=== PATIENT | male | born 1965 | race Caucasian/White ===

== ENCOUNTER 2021-03-24 14:16 | Emergency (ER) | payer OTHER, MEDICAID ==
[~2021-03-24] VITALS: Ht 185.4 cm; Wt 147.4 kg
--- NOTE | ~2021-03-24 | EMS ---
[facility] [address] [place] [address] EMS Patient Care Report Name: WILBERT JHA Room: PRE ER M.R.#: [id number] Admission: Attend Phys: Discharge: Date of : 65 Report #: [id number] THIS REPORT FOR: //name// Report Transmitted: 03/24/2021 14:18 EMS Care Summary [facility] [place] [id number] @ 03/24/2021 13:33 Incident Location [address] [place] [address] Patient Wilbert Jha Male, 55 Years 1965 Patient Address [address] [place] [address] Patient History Endocrine Condition - Other,Polyneuropathy, unspecified,Heart disease, unspecified,Congestive Heart Failure (CHF),Cellulitis,Hypothyroidism, unspecified,Other insomnia,Gastro-Esophageal Reflux Disease (GERD),Obesity, unspecified, Patient Allergies , Chief Complaint Diabetes related symptoms Disposition Transported No Lights/[place] [facility] Reason Unconscious/Fainting Transported To [facility] Narrative Dispatched to address noted for a syncopal episode. [facility] en route and on scene at time noted with [facility] and [facility]. Arrived and [facility] was standing near the patient. Patient was sitting in an electric shopping cart slumped over and not [address] [place] [address] EMS Patient Care Report Name: WILBERT JHA Room: [facility]#: [id number] Admission: Attend Phys: Discharge: Date of : 65 Report #: [id number] answer questions or talking. Patients blood glucose was obtained by [facility] and was low as noted. Patient was in public and we moved him to the stretcher via a carry/slide maneuver. Patient was given some oral glucose as we moved to the ambulance and swallowed some of it but than began to spit it out again. Once in ambulance, vitals where taken and IV was obtained as noted. Patient was given dextrose as noted and started to talk more. [facility] left the scene and patient was not GCS of 15. Patient stated he felt like he could not care for himself if he refused transport and worried he might loss consciousness again. Patient requested transport and [facility] was chosen for care. Dextrose was finished and serial blood levels obtained as noted. While en route, patient was talkative and alert. Patient stated no other complaint and that he takes a sliding scale of 310 units of insulin per day. Patient stated this has not happened in some time. Radio report was given at time noted. Arrived and took patient to triage room. Patient was walked to chair and sat down. RN signed for patient care after taking verbal report and patient signed for self. Patients belongings where left with him at the hospital. END REPORT EMT-P Napoleon K[facility]ns Initial Vitals @13:47SpO2: 93, @13:48SpO2: 94, @13:53SpO2: 96, @13:58SpO2: 94, @13:58SpO2: 97, @13:38 @13:45P: 78,R: 16,BP: 159/79, @13:58P: 81,R: 16,BP: 134/75, @13:45GCS: 11, @13:58GCS: 15, @13:38 @14:14 @PTAGlucose: 32, @13:59Glucose: 148, @14:08Glucose: 108, @13:54Glucose: 182, Assessments @13:38MENTAL:SKIN:HEENT:LUNG SOUNDS:ABDOMEN:PELVIS//GI:EXTREMITIES:PULSE:NEURO: Impression Diabetic Hypoglycemia Procedures @13:53 Dextrose 10% - 25.000 Grams (gms) - Intravenous (IV) Response: Improved @13:40 Oral Glucose - 5.000 Grams (gms) - Oral Response: Unchanged @13:51 IV Therapy - cc () Site: Antecubital-Left Response: [place] [address] EMS Patient Care Report Name: WILBERT JHA Room: PRE [facility].#: [id number] Admission: Attend Phys: Discharge: Date of : 65 Report #: [id number] @13:38 3-Lead ECG Response: UnchangedSucceeded Timeline PATIENT SAFETY ATTENDANT,BP: / M,PULSE: ,RR: R,SPO2: Ox,ETCO2: ,B,PAIN: ,GCS: , 13:28,Dispatch Notified 13:28,Psap Call 13:30,Call Received 13:33,Dispatched 13:33,En Route 13:36,On Scene 13:38,At Patient 13:38,3-Lead ECG,Response: UnchangedSucceeded, 13:38,BP: / M,PULSE: ,RR: R,SPO2: Ox,ETCO2: ,BG: ,PAIN: ,GCS: , 13:38,BP: / M,PULSE: ,RR: R,SPO2: Ox,ETCO2: ,BG: ,PAIN: ,GCS: , 13:40,Oral Glucose - 5.000 Grams (gms) - Oral,Response: Unchanged 13:45,BP: 159/79 M,PULSE: 78,RR: 16 R,SPO2: Ox,ETCO2: ,BG: ,PAIN: ,GCS: , 13:45,BP: / M,PULSE: ,RR: R,SPO2: Ox,ETCO2: ,BG: ,PAIN: ,GCS: 11, 13:47,BP: / M,PULSE: ,RR: R,SPO2: 93 Ox,ETCO2: ,BG: ,PAIN: ,GCS: , 13:48,BP: / M,PULSE: ,RR: R,SPO2: 94 Ox,ETCO2: ,BG: ,PAIN: ,GCS: , 13:51,IV Therapy - cc Site: Antecubital-Left,Response: UnchangedSucceeded, 13:53,BP: / M,PULSE: ,RR: R,SPO2: 96 Ox,ETCO2: ,BG: ,PAIN: ,GCS: , 13:53,Dextrose 10% - 25.000 Grams (gms) - Intravenous (IV),Response: Improved 13:54,BP: / M,PULSE: ,RR: R,SPO2: Ox,ETCO2: ,B,PAIN: ,GCS: , 13:58,BP: / M,PULSE: ,RR: R,SPO2: 94 Ox,ETCO2: ,BG: ,PAIN: ,GCS: , 13:58,BP: / M,PULSE: ,RR: R,SPO2: 97 Ox,ETCO2: ,BG: ,PAIN: ,GCS: , 13:58,BP: 134/75 M,PULSE: 81,RR: 16 R,SPO2: Ox,ETCO2: ,BG: ,PAIN: ,GCS: , 13:58,BP: / M,PULSE: ,RR: R,SPO2: Ox,ETCO2: ,BG: ,PAIN: ,GCS: 15, 13:59,BP: / M,PULSE: ,RR: R,SPO2: Ox,ETCO2: ,B,PAIN: ,GCS: , 14:00,Depart Scene 14:08,BP: / M,PULSE: ,RR: R,SPO2: Ox,ETCO2: ,B,PAIN: ,GCS: , 14:11,At Destination 14:14,BP: / M,PULSE: ,RR: R,SPO2: Ox,ETCO2: ,BG: ,PAIN: ,GCS: , 14:27,Call Closed Disclaimer v1.1 Copyright 2020 [employer] This EMS Care Summary contains data elements from the applicable legal record (which may be displayed differently). It is designed to provide pertinent information for the following purposes: continuity of care, clinical quality, and state data reporting. The complete legal record is available to ED staff and administrators of the receiving hospital in [employer]'s Patient Tracker. All data is provided "as is."
[~2021-03-24 14:16] MED LIST: CRESTOR10 MG PO; FISH OIL 1,2001 EAC4 PO; FLEXERIL PO; FLONASE 0.05%50 MCG NASAL; GARLIC1 EACH PO; HUMALOG100 UNIT/1 SUBQ; HYDROCHLOROTHIA50 MG PO; JANUMET 50-1,01 EACH PO; LANTUS100 UNIT/M SUBQ; METFORMIN HCL500 MG PO; MOBIC15 MG PO; NEURONTIN600 MG PO; PRINIVIL20 MG PO; PROVENTIL HFA6.7 G1 INH; SORINE 80 MG TA80 M1 PO; TOPAMAX50 MG PO; TUSSIONEX PENN473 ML PO
[2021-03-24] MEDS ORDERED: CELEBREX50 MG PO (14:34)
[2021-03-24] MEDS ORDERED: AMITRIPTYLINE H10 M1 PO (14:35)
[2021-03-24] MEDS ORDERED: FUROSEMIDE 20 M20 M1 PO (14:35)
[2021-03-24] MEDS ORDERED: NORVASC10 MG PO (14:35)
[2021-03-24 19:08] VITALS: BP 102/84
== END 2021-03-24 19:13 | disposition home or self-care (01) ==
LOC: M.ERS 14:16
DX: E16.2 Hypoglycemia, unspecified (principal); E11.9 Type 2 diabetes mellitus without complications; I10 Essential (primary) hypertension; Z79.4 Long term (current) use of insulin; Z79.899 Other long term (current) drug therapy